=== PATIENT | male | born 1940 | race Caucasian/White ===

== ENCOUNTER 2019-04-27 14:36 | Emergency (ER) | payer MEDICARE, OTHER ==
[~2019-04-27] VITALS: Ht 193 cm; Wt 95.3 kg
[2019-04-27] MEDS ORDERED: EUTHYROX25 MCG PO (14:52)
[2019-04-27] MEDS ORDERED: ONGLYZA5 MG PO (14:52)
[2019-04-27] MEDS ORDERED: GLUCOPHAGE500 MG PO (14:53)
[2019-04-27] MEDS ORDERED: PRAVACHOL40 MG PO (14:53)
[2019-04-27] MEDS ORDERED: ALTACE10 MG PO (14:53)
[2019-04-27] MEDS ORDERED: FISH OIL 1,0001 EAC2 NG (14:54)
[2019-04-27] MEDS ORDERED: GLIPIZIDE ER5 MG PO (14:54)
[2019-04-27] MEDS ORDERED: ALOGLIPTIN25 MG PO (14:55)
[2019-04-27] MEDS ORDERED: MINIPRESS2 MG PO (14:55)
[2019-04-27] MEDS ORDERED: ASPIRIN81 MG PO (14:55)
[2019-04-27] MEDS ORDERED: ALPHA LIPOIC A300 MG PO (14:56)
--- NOTE | 2019-04-28 07:42 | EKG ---
[facility] [address] [facility] [place] [address] Signed Sinus bradycardia Left anterior fascicular block Abnormal ECG No previous ECGs available Confirmed by DARIN RAMESH MD ([id number] on 04/28/2019 7:42:03 AM Electronically Signed By: DARIN RAMESH MD 04/28/19 0742 PATIENT NAME: SEBASTIAN OVALLE Electrocardiogram DATE OF : 44 PHYSICIAN: DARIN RAMESH MD REPORT #: [id number] REPORT IS CONFIDENTIAL AND NOT TO BE RELEASED WITHOUT AUTHORIZATION
--- NOTE | 2019-04-28 07:43 | EKG ---
[facility] [address] [facility] [place], [place] [address] Signed Sinus bradycardia Left anterior fascicular block Abnormal ECG When compared with ECG of 27-APR-2019 14:50, (Unconfirmed) No significant change was found Confirmed by DARIN RAMESH MD ([id number] on 04/28/2019 7:43:21 AM Electronically Signed By: DARIN RAMESH MD 04/28/19 0743 PATIENT NAME: SEBASTIAN OVALLE Electrocardiogram DATE OF : 44 PHYSICIAN: DARIN RAMESH MD REPORT #: [id number] REPORT IS CONFIDENTIAL AND NOT TO BE RELEASED WITHOUT AUTHORIZATION
== END 2019-04-27 19:30 | disposition home or self-care (01) ==
LOC: ED 14:36
DX: J02.9 Acute pharyngitis, unspecified (principal); I10 Essential (primary) hypertension; E11.9 Type 2 diabetes mellitus without complications; J44.9 Chronic obstructive pulmonary disease, unspecified; G47.30 Sleep apnea, unspecified; Z87.891 Personal history of nicotine dependence; Z88.8 Allergy status to other drugs, medicaments and biological substances; Z79.899 Other long term (current) drug therapy; Z79.84 Long term (current) use of oral hypoglycemic drugs; Z79.82 Long term (current) use of aspirin
CPT/HCPCS: 71045; 80053; 83735; 84484; 85025; 85379; 93005; 93010; 99285-25

== ENCOUNTER 2022-11-07 14:41 | Emergency (ER) | payer OTHER, MEDICARE ==
[~2022-11-07] VITALS: Ht 182.9 cm; Wt 90.7 kg
[~2022-11-07 14:41] MED LIST: ALOGLIPTIN25 MG PO; ALPHA LIPOIC A300 MG PO; ALTACE10 MG PO; ASPIRIN81 MG PO; EUTHYROX25 MCG PO; FISH OIL 1,0001 EAC2 NG; GLIPIZIDE ER5 MG PO; GLUCOPHAGE500 MG PO; MINIPRESS2 MG PO; ONGLYZA5 MG PO; PRAVACHOL40 MG PO
[2022-11-07 17:47] VITALS: BP 149/59
== END 2022-11-07 17:48 | disposition home or self-care (01) ==
LOC: ED 14:41
DX: S61.216A Laceration without foreign body of right little finger without damage to nail, initial encounter (principal); I10 Essential (primary) hypertension; E11.9 Type 2 diabetes mellitus without complications; J44.9 Chronic obstructive pulmonary disease, unspecified; W22.03XA Walked into furniture, initial encounter; Z87.891 Personal history of nicotine dependence; Z88.8 Allergy status to other drugs, medicaments and biological substances; Z79.890 Hormone replacement therapy; Z79.899 Other long term (current) drug therapy; Z79.82 Long term (current) use of aspirin
CPT/HCPCS: 12001; 99282-25

== ENCOUNTER 2022-12-05 02:29 | Emergency (ER) | payer OTHER ==
[~2022-12-05] VITALS: Ht 182.9 cm; Wt 90.7 kg
--- OUTSIDE RECORDS SUMMARY | 2022-12-05 02:36 | XMS ---
PreManage Notification: SEBASTIAN OVALLE Security Theatre Instructor Events No recent Security Events currently on file CRITERIA MET - [facility] - 2 Visits in 30 Days CARE PROVIDERS There are no care providers on record at this time. Jorge has no Care Guidelines for this patient. [facility] V[facility] (12 MO.) [facility] NOTE: Visits indicate total known visits. ED/C VISIT TRACKING (12 MO.) [facility] COMPLAINT: - SORE THROAT,COUGH 11/07/2022 14:[address] [facility] TYPE: Emergency COMPLAINT: - FINGER INJURY DIAGNOSES: - Allergy status to other drugs, medicaments and biological substances - Chronic obstructive pulmonary disease, unspecified - Essential (primary) hypertension - Hormone replacement therapy - Laceration without foreign body of right little finger without damage to nail, initial encounter - emt intermediate (current) use of aspirin - Other rodent exterminator (current) drug therapy - Personal history of nicotine dependence - Type 2 diabetes mellitus without complications - Walked into furniture, initial encounter INPATIENT VISIT TRACKING (12 MO.) No inpatient visits to display in this time frame [id number]
[2022-12-05 03:24] LABS: INFLUENZA B NAA NEGATIVE (NEGATIVE); RESPIRATORY SYNCYTIAL VIR NAA NEGATIVE (NEGATIVE)
[2022-12-05] MEDS ORDERED: CYCLOBENZAPRINE10 MG PO (03:35)
[2022-12-05] MEDS ORDERED: PAXLOVID 300-11 EACH PO (03:35)
[2022-12-05] MEDS ORDERED: ONDANSETRON ODT8 MG PO (03:35)
[2022-12-05 04:06] VITALS: BP 113/65
== END 2022-12-05 04:00 | disposition home or self-care (01) ==
LOC: ED 02:29
PROVIDERS: Family Medicine
DX: U07.1 COVID-19 (principal); I10 Essential (primary) hypertension; E11.9 Type 2 diabetes mellitus without complications; J44.9 Chronic obstructive pulmonary disease, unspecified; Z87.891 Personal history of nicotine dependence; Z88.8 Allergy status to other drugs, medicaments and biological substances; Z79.899 Other long term (current) drug therapy; Z79.890 Hormone replacement therapy; Z79.82 Long term (current) use of aspirin
CPT/HCPCS: 87502; 87651; 99283; A9270; C9803; U0002